=== PATIENT | female | born 1995 | race Hispanic/Latino ===

== ENCOUNTER 2017-04-12 11:02 | Day surgery (SDC) | payer OTHER ==
[2017-04-06 08:51] VITALS: BMI 20.5
[2017-04-12] MEDS ORDERED: ceFAZolin IV 1 gm in Dextrose 1 GM/50 ML BAG IVPB ONE (13:19)
[2017-04-12] MEDS ORDERED: Propofol 10 mg/ml Inj (20 ML) ONE ×2 (13:19→13:27)
[2017-04-12] MEDS ORDERED: Midazolam 2 MG/2 ML VIAL ONE (13:19)
[2017-04-12] MEDS ORDERED: Lactated Ringer's 1,000 ML IV ONE ×2 (13:37→15:12)
--- NOTE | 2017-04-12 14:27 | PCM.SURG1 ---
Surgeon's Initial Post Op Note - Surgeon's Notes Surgeon: Giselle Malik MD Analytical Chemist: none Type of Anesthesia: General Endo, Local Pre-Operative Diagnosis: Chronic pelvic pain. Dyspareunia. Abnormal uterine bleeding. Embedded IUD. Endometriosis Operative Findings: Embedded IUD in the posterior uterine wall. Endometrial polyp posterior uterine wall. Normal anatomy otherwise. Detailed operative report. This is a 21 year-old female with endometrial polyp as well as embedded IUD from several years ago along with associated pelvic pain and dyspareunia and abnormal uterine bleeding. Proper consent was obtained. Patient was taken to the operating room where general anesthesia was obtained without difficulty. She was prepped and draped appropriately for hysteroscopic removal of endometrial polyps. Patient was placed in dorsal lithotomy position, legs were placed in adjustable Elijah stirrups, and careful attention was placed to avoid hyperflexion or hyperextension of the lower extremities. Martinez catheter was inserted under sterile condition. The cervix was grasped with Tenaculumcervix was dilated to allow a hysteroscope to be advanced into the endometrial cavity. Hysteroscope was inserted and an endometrial polypoid structure along the posterior uterine wall. The IUD was noted within the posterior uterine wall closer to the endocervix. The edge of the IUD was grasped with hysteroscopic forceps and under direct visualization was pulled out and extracted from the uterine cavity. The Myosure device was inserted and in a usual fashion the polyp was excised in a meticulous and careful way with excellent hemostasis. The polypoid tissue sent to pathology. At this time to hysteroscope was removed and endometrial distention was reduced. Fluid utilized was normal saline, fluid deficit was measured at 200 mL. Patient tolerated the procedure well and was taken to recovery room in stable condition. Prior to incision. She received prophylactic antibiotics, prior to closure sponge lap and needle count correct 2. Post-Operative Diagnosis: Chronic pelvic pain. Dyspareunia. Abnormal uterine bleeding. Embedded IUD. Endometriosis Operation Performed: 1. Myosure Hysteroscopic polypectomy. 2. Hysteroscopic extraction of embedded IUD. . Specimen/Specimens Removed: IUD. Endometrial polyp Estimated Blood Loss: EBL {In ML}: 5 Blood Products Given: N/A Drains Used: No Drains Post-Op Condition: Good Date of Surgery/Procedure: 04/12/17 Time of Surgery/Procedure: 14:28
[2017-04-12] MEDS ORDERED: HYDROmorphone 0.5 mg/0.5 ml ISec IVP PRN (14:33)
[2017-04-12] MEDS ORDERED: Oxycodone/Acetaminophen 5/325 mg Tab PO PRN (14:43)
[2017-04-12] MEDS ORDERED: Lactated Ringer's 1,000 ML IV SCH (14:45)
[2017-04-12 16:11] VITALS: RESP 18; TEMP 97.8
[2017-04-12 16:12] VITALS: BP 112/64; PULSE 77; O2SAT 100
== END 2017-04-12 16:00 | disposition home or self-care (01) ==
LOC: C.SDS 11:02
PROVIDERS: ATTEND Obstetrics & Gynecology
DX: N84.0 Polyp of corpus uteri (principal); N80.0 Endometriosis of uterus; R10.2 Pelvic and perineal pain; E28.2 Polycystic ovarian syndrome; N93.9 Abnormal uterine and vaginal bleeding, unspecified; T83.89XA Other specified complication of genitourinary prosthetic devices, implants and grafts, initial encounter
CPT/HCPCS: 58558; 88300; 88305; J0690; J1100; J1885; J2250; J2405; J2704; J3010; J7120